=== PATIENT | female | born 1990 | race African-American/Black ===

== ENCOUNTER 2018-03-14 12:23 | Emergency (ER) | payer SELFPAY ==
[~2018-03-14] VITALS: Ht 165.1 cm; Wt 59.0 kg
--- NOTE | 2018-03-14 12:25 | NUR ---
ASSISSTED EXAMINING THE PT.
--- NOTE | 2018-03-14 12:39 | NUR ---
Patient discharged to home in stable conditon. Written and verbal after care instructions given. Patient verbalizes understanding of instructions.
== END 2018-03-14 12:40 | disposition home or self-care (01) ==
LOC: ER 12:23
DX: K62.5 Hemorrhage of anus and rectum (principal); K59.00 Constipation, unspecified
CPT/HCPCS: A4663